=== PATIENT | female | born 1980 | race Caucasian/White ===

== ENCOUNTER 2017-03-21 09:33 | Emergency (ER) | payer BC ==
[2017-03-21 10:07] VITALS: BP 126/99
--- NOTE | 2017-03-21 10:20 | ED ---
Throat Pain/Nasal Congestion - HPI Summary HPI Summary: 36 yr old female with the complaint of frontal sinus pressure, post nasal drip, coughing and wheezing. The patient states that for the past several days she has had sinus symptoms. Now she is coughing a lot, and feels like her asthma has been exacerbated. She has been using her ventolin inhaler with some relief but not enough relief. She denies CP. She does feel SOB on exertion with coughing and wheezing episodes. She states she has chronic sinus issues, and had prior sinus surgery. - History of Current Complaint Chief Complaint: UCRespiratory Time Seen by Provider: 03/21/17 09:59 - Allergies/Home Medications Allergies/Adverse Reactions: Allergies Allergy/AdvReac Type Severity Reaction Status Date / Time No Known Allergies Allergy Verified 03/21/17 09:55 Home Medications: Home Medications Fluticasone-Salmeterol 250-50* [Advair Diskus 250-50*] 1 puff INH BID 03/21/17 [ History Confirmed 03/21/17] PMH/Surg Hx/FS Hx/Imm Hx Cardiovascular History: Denies: Other Cardiovascular Problems/Disorders Respiratory History: Reports: Hx Asthma - WILL BRING INHALERS Denies: Other Respiratory Problems/Disorders GI History: Denies: Other GI Disorders Musculoskeletal History: Reports: Hx Tendonitis - STEVE WRISTS Denies: Other Musculoskeletal History Sensory History: Denies: Hx Contacts or Glasses, Hx Hearing Aid Opthamlomology History: Denies: Hx Contacts or Glasses Neurological History: Denies: Other Neuro Impairments/Disorders Psychiatric History: Reports: Hx Anxiety - ON MEDS - Surgical History Surgery Procedure, Year, and Place: Sinus Surgery, 2009, [facility]. [place] and [place] [facility] [place] [facility] [place] [place] Anesthesia Reactions: No Infectious Disease History: No Infectious Disease History: Denies: Traveled Outside the [place] in Last 30 Days - Family History Known Family History: Positive: None, Unknown - Social History Alcohol Use: None Substance Use Type: Reports: None Smoking Status (MU): Never Smoked Tobacco Have You Smoked in the Last Year: No Review of Systems Constitutional: Negative Positive: Nasal Discharge, Other - sinus pain Cardiovascular: Negative Positive: Shortness Of Breath, Cough Gastrointestinal: Negative Genitourinary: Negative Musculoskeletal: Negative Skin: Negative Neurological: Negative All Other Systems Reviewed And Are Negative: Yes Physical Exam Triage Information Reviewed: Yes Vital Signs On Initial Exam: Initial Vitals Temp Pulse Resp BP Pulse Ox 98.2 F 98 18 126/99 96 03/21/17 09:57 03/21/17 09:57 03/21/17 09:57 03/21/17 09:57 03/21/17 09:57 Vital Signs Reviewed: Yes Appearance: Positive: Well-Appearing, No Pain Distress Skin: Positive: Warm, Skin Color Reflects Adequate Perfusion Head/Face: Positive: Normal Head/Face Inspection Eyes: Positive: Normal, EOMI, ANDREW ENT: Positive: Normal ENT inspection, Other - tender to percussion frontal sinuses. Neck: Positive: Supple Respiratory/Lung Sounds: Positive: Clear to Auscultation, Breath Sounds Present Cardiovascular: Positive: Normal, RRR. Negative: Murmur Abdomen Description: Positive: Nontender Musculoskeletal: Positive: Normal, Strength/ROM Intact Neurological: Positive: Normal, Sensory/Motor Intact, Alert, Oriented to Person Place, Time, CN Intact II-III Psychiatric: Positive: Normal Diagnostics - Vital Signs Vital Signs Temp Pulse Resp BP Pulse Ox 03/21/17 09:57 98.2 F 98 18 126/99 96 - Laboratory Lab Statement: Any lab studies that have been ordered have been reviewed, and results considered in the medical decision making process. EENT Course/Dx - Course Course Of Treatment: 36 yr old female with coughing, wheezing and sinusitis. Rx with Augmentin and Prednisone. - Diagnoses Provider Diagnoses: Sinusitis, Asthma Discharge - Discharge Plan Condition: Good Disposition: HOME Prescriptions: Amoxicillin/Clavulanate TAB* [Augmentin TAB 875*] 875 mg PO BID #20 tab predniSONE TAB* [Deltasone TAB*] 40 mg PO DAILY #8 tab Patient Education Materials: Sinusitis (ED), Asthma (ED) Referrals: Gayla Castro NP [Primary Care Provider] -
== END 2017-03-21 10:30 | disposition home or self-care (01) ==
LOC: UCCORT 09:33
DX: J32.9 Chronic sinusitis, unspecified (principal); J45.909 Unspecified asthma, uncomplicated
CPT/HCPCS: 99212; G0463

== ENCOUNTER 2018-03-24 13:53 | Emergency (ER) | payer BC ==
[2018-03-24 14:12] VITALS: BP 134/93
--- NOTE | 2018-03-24 14:36 | UC ---
Ear Complaint HPI - HPI Summary HPI Summary: 37 year old female with no significant pmhx here with left ear pain s/p new piercing one week ago. Reports she had no pain until yesterday. She was playing around with her earring over the new site and noticed some pain. She went to the person that pierced her ear. They cleaned it out for her and she was to come here for further management. Denies fever, chills, n/v/d - History of Current Complaint Chief Complaint: UCSkin Stated Complaint: EAR PIERCING INFECTION Time Seen by Provider: 03/24/18 14:18 Hx Last Menstrual Period: 03/06/18 ?: No Onset/Duration: Gradual Onset Severity Initially: Mild Severity Currently: None Pain Intensity: 7 Aggravating Factors: Nothing Alleviating Factors: Nothing - Allergies/Home Medications Allergies/Adverse Reactions: Allergies Allergy/AdvReac Type Severity Reaction Status Date / Time No Known Allergies Allergy Verified 03/21/17 09:55 Home Medications: Home Medications Beclomethasone Dipropionate [Qnasl] 1 each INH DAILY 03/24/18 [History Confirmed 03/24/18] PMH/Surg Hx/FS Hx/Imm Hx Previously Healthy: Yes - Surgical History Surgical History: Yes Surgery Procedure, Year, and Place: Sinus Surgery, 2009, [facility]. RIGHT and left [facility] 09/11 [facility] [place] - Family History Known Family History: Positive: None, Unknown - Social History Alcohol Use: Occasionally Substance Use Type: None Smoking Status (MU): Never Smoked Tobacco Have You Smoked in the Last Year: No - Immunization History Hx Tetanus, Diphtheria Vaccination: No Vaccination Up to Date: Yes Review of Systems Constitutional: Negative Skin: Negative Eyes: Negative ENT: Ear Ache Respiratory: Negative Cardiovascular: Negative Gastrointestinal: Negative Genitourinary: Negative Motor: Negative Neurovascular: Negative Musculoskeletal: Negative Neurological: Negative Psychological: Negative Is Patient Immunocompromised?: No All Other Systems Reviewed And Are Negative: Yes Physical Exam Triage Information Reviewed: Yes Appearance: Well-Appearing, No Pain Distress Vital Signs: Initial Vital Signs Temp 36.7 C 03/24/18 14:06 Pulse 73 03/24/18 14:06 Resp 16 03/24/18 14:06 BP 134/93 03/24/18 14:06 Pulse Ox 99 03/24/18 14:06 Vital Signs Reviewed: Yes Eye Exam: Normal ENT: Positive: Other - left ear with swelling and Earring removed already; No fluctuance; swelling over scaphoid fossa over helix and antihelix Diagnostics - EKG Cardiac Rate: NL Cardiac Rhythm: Sinus: Normal Ectopy: None ST Segment: Normal - QTc 430 (safe for dispo) Ear Complaint Course/Dx - Course Course Of Treatment: Called to discuss with Dr. Mayda Mckeon and left message. Patient does have mild swelling but not severe swelling and no concern for necrosis at this point. Will start with cipro here and keflex. Addendum. Dr. Ohara called back and agrees with the plan. Patient also citalopram, and will do QTc before cipro rx. - Differential Dx/Diagnosis Differential Diagnosis/HQI/PQRI: Cellulitis, Otitis Externa, Trauma Provider Diagnoses: Perichondritis Discharge - Sign-Out/Discharge Documenting (check all that apply): Discharge/Admit/Transfer - Discharge Plan Condition: Good Disposition: HOME Prescriptions: Cephalexin CAP* [Keflex CAP*] 500 mg PO QID 10 Days #40 cap Ciprofloxacin HCl [Cipro] 500 mg PO BID #20 tablet Patient Education Materials: Pierced Earlobe Infection (ED) Forms: *Work Release Referrals: Danya Baeza MD [Primary Care Provider] - Additional Instructions: If swelling worsen, please go to your nearest emergency department. If you continue to have pain, follow up with your primary care doctor. - Billing Disposition and Condition Condition: GOOD Disposition: HOME Images Head: 1 - swelling and redness
[2018-03-24] MEDS ORDERED: Ciprofloxacin TAB* 500 MG PO ONE (14:42)
[2018-03-24] MEDS ORDERED: Ibuprofen TAB* 600 MG PO ONE (15:02)
== END 2018-03-24 15:15 | disposition home or self-care (01) ==
LOC: UCCORT 13:53
DX: H61.002 Unspecified perichondritis of left external ear (principal)
CPT/HCPCS: 93005; 99212; A9270-GY; G0463

== ENCOUNTER 2018-07-27 13:47 | Emergency (ER) | payer BC ==
[2018-07-27 14:42] VITALS: BP 131/89
--- NOTE | 2018-07-27 14:57 | UC ---
Complaint Female HPI - HPI Summary HPI Summary: 2 day history of dysuria, frequency and suprapubic pressure. No vaginal symptoms , back pain or fever. Hx of candidal infections with antibiotics, request fluconazole for use if needed. - History Of Current Complaint Stated Complaint: URINARY Time Seen by Provider: 07/27/18 14:38 Hx Obtained From: Patient Hx Last Menstrual Period: 07/07/18 ?: Yes Onset/Duration: Gradual Onset, Lasting Days - 2 Timing: Intermittent Severity Initially: Mild Severity Currently: Moderate Pain Intensity: 0 Character: Burning Aggravating Factor(s): Urination Alleviating Factor(s): Nothing Associated Signs And Symptoms: Positive: Negative Related Hx: Similar Episode/Dx as: - UTI, possible pyelo in the past during last - Allergies/Home Medications Allergies/Adverse Reactions: Allergies Allergy/AdvReac Type Severity Reaction Status Date / Time No Known Allergies Allergy Verified 03/21/17 09:55 Home Medications: Home Medications Norgestimate-Ethinyl Estradiol [Ortho Tri-Cyclen Lo Tablet] 1 each PO DAILY [History Confirmed 07/27/18] PMH/Surg Hx/FS Hx/Imm Hx Previously Healthy: Yes Psychological History: Anxiety - Surgical History Surgical History: Yes Surgery Procedure, Year, and Place: Sinus Surgery, 2009, [facility]. RIGHT and left [facility] 09/11 [facility] [place] - Family History Known Family History: Positive: Diabetes - mother - Social History Occupation: Employed Full-time Lives: With Family Alcohol Use: Occasionally Substance Use Type: None Smoking Status (MU): Never Smoked Tobacco Have You Smoked in the Last Year: No - Immunization History Hx Tetanus, Diphtheria Vaccination: No Vaccination Up to Date: Yes Review of Systems Constitutional: Negative Skin: Negative Eyes: Negative ENT: Sinus Congestion - allergies increased over the past days, controlled with antihistamine. Respiratory: Negative Cardiovascular: Negative Gastrointestinal: Negative Genitourinary: Dysuria, Frequency, Urgency Motor: Negative Neurovascular: Negative Musculoskeletal: Negative Neurological: Negative Psychological: Negative Is Patient Immunocompromised?: No All Other Systems Reviewed And Are Negative: Yes Physical Exam Triage Information Reviewed: Yes Appearance: Well-Appearing, No Pain Distress Vital Signs: Initial Vital Signs Temp 98.1 F 07/27/18 14:35 Pulse 82 07/27/18 14:35 Resp 16 08/30/18 14:35 BP 131/89 07/27/18 14:35 Pulse Ox 99 07/27/18 14:35 ENT: Positive: Pharynx normal Neck: Positive: Supple, Nontender, No Lymphadenopathy Respiratory: Positive: Lungs clear, Normal breath sounds Cardiovascular: Positive: RRR, No Murmur Abdomen Description: Positive: Nontender, No Organomegaly, Soft. Negative: CVA Tenderness (R), CVA Tenderness (L) Skin Exam: Normal Diagnostics - Laboratory Diagnostic Studies Completed/Ordered: UA with white cells and red cells Complaint Female Dx - Course Course Of Treatment: macrodantin for UTI - Differential Dx/Diagnosis Differential Diagnosis/HQI/PQRI: Urinary Tract Infection Provider Diagnoses: UTI Discharge - Sign-Out/Discharge Documenting (check all that apply): Patient Departure All imaging exams completed and their final reports reviewed: No Studies - Discharge Plan Condition: Stable Disposition: HOME Prescriptions: Fluconazole [Fluconazole 150 mg tab] 150 mg PO ONCE #1 tablet Nitrofurantoin Monohyd/M-Cryst [Macrobid 100 mg Capsule] 100 mg PO BID #14 cap Patient Education Materials: Urinary Tract Infection in Women (ED) Referrals: Danya Baeza MD [Primary Care Provider] - Additional Instructions: take full course of antibiotics, increase fluids, use fluconazole if needed. - Billing Disposition and Condition Condition: STABLE Disposition: Home
== END 2018-07-27 15:07 | disposition home or self-care (01) ==
LOC: UCCORT 13:47
DX: N39.0 Urinary tract infection, site not specified (principal)
CPT/HCPCS: 81003; 87077; 87086; 99212; G0463

== ENCOUNTER 2019-11-19 13:51 | Emergency (ER) | payer BC ==
[2019-11-19 14:02] VITALS: BP 149/89
--- NOTE | 2019-11-19 14:10 | UC ---
Skin Complaint HPI - HPI Summary HPI Summary: 39-year-old female who has had Lips for the past 2 weeks. She's had no new medications. She's been applying Chapstick without improvement. She denies any history of cold sores. Today she has some cracking of soreness in the corners of her lips as well. She denies any difficulty swallowing or breathing. - History of Current Complaint Chief Complaint: UCGeneralIllness Time Seen by Provider: 11/19/19 13:52 Stated Complaint: TOP LIP CHAPPED AND NUMB Hx Obtained From: Patient Hx Last Menstrual Period: no periods ?: No Onset/Duration: Gradual Onset Skin Exposure Onset/Duration: Weeks Ago Timing: Constant Onset Severity: Mild Current Severity: Mild Pain Intensity: 0 Location: Other - Both lips Character: Redness - Patient states that she feels at times that her lips are swollen however it's more the dryness that has bothered her. She also states at times her lips feel numb. Aggravating Factor(s): Nothing Alleviating Factor(s): Nothing Associated Signs & Symptoms: Positive: Negative - Allergy/Home Medications Allergies/Adverse Reactions: Allergies Allergy/AdvReac Type Severity Reaction Status Date / Time No Known Allergies Allergy Verified 11/19/19 14:02 PMH/Surg Hx/FS Hx/Imm Hx Previously Healthy: Yes Respiratory History: Asthma - Surgical History Surgical History: Yes Surgery Procedure, Year, and Place: Sinus Surgery, 2009, [facility]. RIGHT and left [facility] 09/11 [facility] [place] - Family History Known Family History: Positive: None, Unknown, Diabetes - mother - Social History Alcohol Use: Occasionally Substance Use Type: None Smoking Status (MU): Never Smoked Tobacco Have You Smoked in the Last Year: No - Immunization History Hx Tetanus, Diphtheria Vaccination: No Vaccination Up to Date: Yes Review of Systems All Other Systems Reviewed And Are Negative: Yes Skin: Positive: Other - dry lips. Is Patient Immunocompromised?: No Physical Exam Triage Information Reviewed: Yes Appearance: Well-Appearing, No Pain Distress, Well-Nourished Vital Signs: Initial Vital Signs Temp 99.1 F 11/19/19 13:59 Pulse 95 11/19/19 13:59 Resp 18 11/19/19 13:59 BP 149/89 11/19/19 13:59 Pulse Ox 100 11/19/19 13:59 Vital Signs Reviewed: Yes Eyes: Positive: Conjunctiva Clear ENT: Positive: Pharynx normal, TMs normal, Uvula midline Neck: Positive: Supple, Nontender, No Lymphadenopathy Respiratory: Positive: Lungs clear, Normal breath sounds, No respiratory distress, No accessory muscle use Cardiovascular: Positive: RRR, No Murmur, Pulses Normal, Brisk Capillary Refill Neurological Exam: Normal Psychological Exam: Normal Skin: Positive: Rashes - Both lips are quite dry, she does have some cracked skin in the corners of her mouth. Course/Dx - Course Course Of Treatment: Patient is comfortable here.This does not look herpetic. I am going to treat with Bactroban and see if that improves. It may also be viral which I explained to her and may just need more time to resolve. She is follow-up with her primary care provider as needed in 3 or 4 days if no improvement. - Diagnoses Provider Diagnosis: Chapped lips Discharge ED - Sign-Out/Discharge Documenting (check all that apply): Patient Departure All imaging exams completed and their final reports reviewed: No Studies - Discharge Plan Condition: Good Disposition: HOME Prescriptions: Mupirocin 2% OINT* [Bactroban 2 % Oint*] 1 applic TOPICAL TID 5 Days #1 tube Referrals: Fredis Dalal MD [Medical Doctor] - Danya Baeza MD [Primary Care Provider] - Caorlina Culver [Medical Doctor] - Additional Instructions: Follow-up with a lead java software engineer in approximately 3 or 4 days if no improvement. - Billing Disposition and Condition Condition: GOOD Disposition: Home
== END 2019-11-19 14:17 | disposition home or self-care (01) ==
LOC: UCCORT 13:51
DX: K13.0 Diseases of lips (principal); J45.909 Unspecified asthma, uncomplicated
CPT/HCPCS: 99212; G0463